=== PATIENT | male | born 1975 | race Caucasian/White ===

== ENCOUNTER → 2016-10-23 | Outpatient (CLI) | payer OTHER ==
--- NOTE | 2016-10-23 23:53 | PAIN ---
DATE OF SERVICE: 10/23/2016 INITIAL CONSULTATION FOR PAIN CLINIC CHIEF COMPLAINT: Low back and right lower extremity pain. HISTORY OF PRESENT ILLNESS: This is a 41-year-old male who presents with history of pain to the low back and right lower extremity for about 2 years, on and off, but much worse over the past 3-4 months. The patient reports no specific injury or action he is aware of, but is becoming more and more noticeable every day with pain radiating more on the right than the left in the anterior lateral thigh, medial thigh and to the medial lower leg to the ankle occasionally, but mostly on the thigh and in the low back. The patient reports it is constant, stabbing, shooting, radiating, worse since June of this year. The back pain has slightly subsided, but the leg pain is significant. The patient reports it is worse with bending, activity, standing, walking; better with lying down, but it does not awaken him from sleep at night. He feels better, sitting or lying down, standing is worst and bending forward and flexion with repetitive motion, it is worse as well. It does not affect his bowel or bladder control, but does affect his ability to walk with some moderate weakness in the right leg with extended walking more than 20 minutes. The patient reports he has had chiropractic treatment as well as physical therapy. He has been doing therapy exercises that he was shown in years past on his own. Also, has chiropractic treatment most recently is in 2014, but it . This was not helpful at this time either. The patient reports his disability rating from 0-10, 10 being the worst, it is 6 with family and home responsibilities, social activity, occupation, sexual behavior and self-care and 4 with life support activity and 7 with recreational activities. The patient did have an MRI scan of the lumbar spine showing a moderate sized central disk protrusion at L4-L5 deforming the cul-de-sac with some mass effect on the lateral recesses as well as due to the broad-based nature of the protrusion. L5-S1 shows small left paracentral disk protrusion as well as slight mass effect, left lateral recess on the left nerve root. The patient reports no loss of motor function of the right lower extremity, but significant fatigability compared to the left when standing or walking. PAST MEDICAL HISTORY: Significant for only hypercholesterolemia. No previous surgeries. the patient has been in relatively good health. CURRENT MEDICATIONS: Include Meloxicam, Flexeril, ibuprofen. ALLERGIES: The patient has no known drug allergies. FAMILY HISTORY: Significant for cancer, heart disease and myocardial infarctions. 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 Drinks alcohol one to two times a year on average, drinks tea and soda daily as well as water. REVIEW OF SYSTEMS: The patient's review of systems is positive for those items mentioned in the history of present illness. All systems reviewed and otherwise negative. It is complete, full and well documented on the patient's chart. PHYSICAL EXAMINATION: VITAL SIGNS: Today, the patient's blood pressure is 138/93, pulse 70, respirations 18, temperature 98.1 degrees Fahrenheit, height 6 feet 1 inch, weight is 238 pounds. GENERAL: The patient is awake, alert, oriented, appropriate, has a very pleasant demeanor. HEENT: Head shows normocephalic, atraumatic. Extraocular movements are intact and symmetrical. Oral cavity shows mucous membranes moist and pink. Dentition is intact. NECK: Shows anterior throat supple without palpable lymphadenopathy noted. Swallow reflex is symmetrical. CHEST: Shows normal on inspection. Breath sounds are clear to auscultation bilaterally. HEART: Shows S1 and S2 clear. No murmurs auscultated. ABDOMEN: Soft, nontender, nondistended. No palpable organomegaly. No rebound or guarding demonstrated. BACK: Shows spine grossly in the midline. Normal appearing thoracic kyphosis and lumbar lordotic curvature. No previous bruises, lesions, rashes or scars are noted. Normal appearing thoracic kyphosis and lumbar lordotic curvature. Lumbar paraspinous muscle shows symmetrical on inspection, with palpation shows normal muscle girth, symmetrical, some moderate tenderness to palpation but only in the lower and mid distribution of the paraspinous muscles and equal bilaterally, right and left. The patient shows no tenderness over the sacrum and sacroiliac regions with palpation. He shows good rotational motion of the lumbar spine, both laterally greater than 10 degrees right and left as well as extension greater than 10 degrees, forward flexion at 45 degrees without significant pain reported. Lower extremities show deep tendon reflexes at 2+ in the patellar, 1+ tendo-calcaneus tendons are equal. Motor exam is strong with 5/5 dorsiflexion, extension, quadriceps and hamstring flexion. Peripheral pulses are 1+, posterior tibial and dorsalis pedis pulses. No peripheral edema is noted. No clubbing, no cyanosis. Lower extremities are warm and dry to touch, equal in color and appearance. Straight leg raise is positive on the right at about 35-40 degrees and positive on the left at about 45 degrees. These are both decreased with knee flexion, but not completely relieved, again more intense on the right side. Gaenslen's and Elbert's maneuvers are grossly negative bilaterally. The patient is able to stand, stand on his toes without difficulty or loss of balance, is walking with a slight favoring gait, favors the right lower extremity with a slight limp, not using any assistive devices to ambulate such as canes or walkers. IMPRESSION: 1. This is a 41-year-old male with 2-year history of increasing pain over the past several months, worse in the right lower extremity as well as low back in a radicular pattern, some in the left as well, but much worse on the right side. 2. MRI scan of lumbar spine as noted. 3. Hypercholesterolemia. PLAN: Options were discussed with the patient including conservative medical management, physical therapy, interventional techniques and he started doing physical therapy exercises on his own and has had some chiropractic treatment in the past as well without significant improvement. He would like to pursue interventional techniques. We discussed a lumbar epidural steroid injection using description as well as anatomical models to describe the procedure. The patient will wait for preauthorization with insurance provider and we will plan on lumbar epidural steroid injection in approximately 1 week once approval is obtained. POA TINOCO MD DR: [email or web address] JOB#: [id number] / [id number]
== END | disposition home or self-care (01) ==
LOC: PNCL 08:09
PROVIDERS: ATTEND Anesthesiology
DX: M54.5 Low back pain (principal); M79.604 Pain in right leg
CPT/HCPCS: 99214

== ENCOUNTER → 2016-11-06 | Outpatient (CLI) | payer OTHER ==
[~2016-11-06] MED LIST: methylPREDNISolone ACETATE 40 MG/ML VIAL. ONE; methylPREDNISolone ACETATE 80 MG/ML VIAL. ONE
== END | disposition home or self-care (01) ==
LOC: PNCL 08:01
PROVIDERS: ATTEND Anesthesiology
DX: M51.36 Other intervertebral disc degeneration, lumbar region (principal); E11.9 Type 2 diabetes mellitus without complications; C90.00 Multiple myeloma not having achieved remission; J45.909 Unspecified asthma, uncomplicated; J44.9 Chronic obstructive pulmonary disease, unspecified; I10 Essential (primary) hypertension; F17.200 Nicotine dependence, unspecified, uncomplicated; Z91.041 Radiographic dye allergy status
CPT/HCPCS: 62323; J1030; J1040